=== PATIENT | female | born 1945 | race Caucasian/White ===

== ENCOUNTER 2018-02-21 11:52 | Emergency (ER) | payer OTHER, MEDICAID ==
[~2018-02-21] VITALS: Ht 160 cm; Wt 84.4 kg
[2018-02-21 12:02] VITALS: BP_SYST 122
[2018-02-21] MEDS: traMADol HCL HCL 50 MG TABLET (ULTRAM) PO ONE (13:25)
[2018-02-21 13:50] VITALS: BP_SYST 120
== END 2018-02-21 13:50 | disposition home or self-care (01) ==
LOC: SED 11:52
DX: S93.401A Sprain of unspecified ligament of right ankle, initial encounter (principal); I10 Essential (primary) hypertension; Z86.79 Personal history of other diseases of the circulatory system; W19.XXXA Unspecified fall, initial encounter; Y93.89 Activity, other specified; Y92.89 Other specified places as the place of occurrence of the external cause; Y99.8 Other external cause status
CPT/HCPCS: 99283